=== PATIENT | female | born 1945 | race Caucasian/White ===

== ENCOUNTER 2024-06-25 08:45 | Outpatient (RCR) | payer MEDICARE, SELFPAY ==
[2024-06-11 08:02] VITALS: BP 117/69; PULSE 63; RESP 18; TEMP 36.5; BMI 33.1
--- NOTE | 2024-06-11 11:44 | HP.PCM_ITS ---
History of Present Illness Date of Service: 06/11/24 Chief Complaint: Left leg ulceration History of Wound: Nonhealing left leg ulceration 1 month Progress of Wound: Mrs. Rasmussen is a 79-year-old nondiabetic female presenting wound care center today for follow-up evaluation of full-thickness wound to the left leg. Patient states that her wound was caused by trauma when she was moving her piyush's at her [place] home to drive up from [place] to [place] to attend the fair. Patient states that she was seen initially for a hematoma that erupted on the left leg and is now left with a full-thickness wound. She has taken antibiotics but still has a chronic ulceration. No real treatment thus far. She denies constitutional symptoms. No other pedal plaints at this time. [facility] Home Medications ?Medication ?Instructions ?Recorded ?Last Taken ?Type alirocumab 75 mg/mL subcutaneous 75 mg subcut Q14D Cholesterol 06/11/24 Unknown History pen injector (Praluent Pen) alprazolam 0.5 mg tablet 0.25 mg PO PRN anxiety 06/11/24 Unknown History conjugated estrogens 0.625 mg/gram 0.625 mg vaginal DAILY Menopause 06/11/24 Unknown History vaginal cream (Premarin) hydrochlorothiazide 25 mg tablet 25 mg PO DAILY 06/11/24 Unknown History levothyroxine 125 mcg tablet 125 mcg PO DAILY 06/11/24 Unknown History omeprazole 20 mg capsule,delayed 20 mg PO BID 06/11/24 Unknown History release sertraline 100 mg tablet 100 mg PO DAILY 06/11/24 Unknown History spironolactone 25 mg tablet 25 mg PO DAILY 06/11/24 Unknown History Vital Signs Vital Signs Vital Signs: 06/11/24 08:02 Temperature 97.7 F L Temperature Source Temporal Pulse Rate 63 Respiratory Rate 18 Blood Pressure 117/69 Blood Pressure Mean 85 Blood Pressure Source Monitor Blood Pressure Position Sitting Blood Pressure Location Left Arm Oxygen Delivery Method Room Air Weight Weight: 87.543 kg Body Mass Index (BMI) 33.1 Physical Exam Narrative Vascular: DP and PT pulses to left lower extremity. Nonpitting edema appreciated to left lower extremity. Skin temperature gradient is warm to warm from proximal ankle to distal digits. No focal increase appreciated left lower extremity. Neurological: Light touch intact. Patient responds to painful stimuli. Dermatological: Full-thickness ulceration to anterior aspect of the left leg measuring 3.5 x 4.5 x 0.3 cm. Wound base is granular nature. Evidence of 0.5 cm undermining on all sides. Negative probe to bone. No drainage. No malodor. Light periwound erythema. Excisional debridement down to and including subcutaneous tissue, fascia and muscle to the left anterior leg without incident. Predebridement measurement was 3.0 x 4.0 x 0.1 cm. Postdebridement measurement is 3.5 x 4.5 x 0.3 cm. Musculoskeletal: Strength is 5 out of 5 in all quadrants. Mild pain on palpation to full-thickness ulceration to left leg. No pain at the calf pressure. Debridement Note Debridement Note Debridement Free Text: Excisional debridement down to and including subcutaneous tissue, fascia and muscle to the left anterior leg without incident. Predebridement measurement was 3.0 x 4.0 x 0.1 cm. Postdebridement measurement is 3.5 x 4.5 x 0.3 cm. Post-Debridement Measurements and Additional Note: Post-Debridement Measurements/Treatment - Nurse 1 - General Ulcer Assessment Start: 06/11/24 08:02 Freq: Status: Active Protocol: .NENITA Activity Type Activity Date Activity User E-sign Co-sign Detail Recorded Client Recorded Date Recorded By Document 06/11/24 08:02 [facility] 06/11/24 08:25 06/11/24 08:02 - Today's Visit Information Type of service Initial Visit Arrival Mode Ambulatory Transfer Assistance None Patient Identification Verified (Name & Yes ) Patient Requires Transmission-Based No Precautions Height and Weight Height 5 ft 4 in Weight 87.543 kg Weight in Pounds 193.0 lbs Weight Measurement Method Stated by Patient Body Mass Index (BMI) 33.1 BMI Classification Obese BSA - Jadiel 1.93 Vital Signs Temperature (97.8 F-99.1 F) 97.7 F L Temperature Source Temporal Pulse Rate (60-100) 63 Pulse Location Monitor Respiratory Rate (12-18) 18 Respiratory rate source Observation Oxygen Delivery Method Room Air Blood Pressure (90/60-120/80) 117/69 Blood Pressure Mean 85 Source Monitor Position Sitting Blood Pressure Location Left Arm History Since Last Visit- (Skip if this is Patient's initial visit) Has compression in place as prescribed N/A Has offloadiing in place as prescribed N/A Left Footwear Regular Shoe Right Footwear Regular Shoe Pain Scale: 0-10 Numeric Is Patient Pain Free? Yes Lower Extremity Assessment/ Foot Assessment/ Toe Nail Assessment Left -Claudication Assessment None -Posterior Tibial Palpable Yes -Dorsalis Pedis Palpable Yes -Dorsalis Pedis Doppler Monophasic -Hair Growth on Legs No -Hair Growth on Toes No -Temperature of Extremity Warm -Capillary Refill Less than 3 Seconds -Dependent Rubor No -Blanched when Elevated No -Other Deformity No -Prior Foot Ulcer No -Charcot Joint No -Prior Amputation No -Thick No -Discolored No -Deformed No -Improper Length & Hygeine No Communication Assessment Preferred language [place] Associate Relations Specialist Required No Able to Read Yes Able to Write Yes Communication Tools None Caregiver Communication Skills No Impairment Impairment Right Hearing Abillity Use of Hearing Aid Left Hearing Abillity Use of Hearing Aid Visual Assistive Devices None - Nurse 1 - General Ulcer Measurement Start: 06/11/24 08:02 Freq: Status: Active Protocol: Activity Type Activity Date Activity User E-sign Co-sign Detail Recorded Client Recorded Date Recorded By Document 06/11/24 08:02 [facility] 06/11/24 08:25 06/11/24 08:02 Wound Center Nurse 1 LLE -Combined with other wound No -Current Size (cm) - Length 2.2 -Current Size (cm) - Width 2.9 -Current Size (cm) - Depth 0.4 -Total Square Cm 6.38 -Date of Last Picture (Recall this 06/11/24 field) -Photo Taken Yes -Epithelialization Small 1-33% -Tunneling No -Undermining/Tunneling No -Circular Undermining Yes -Exudate Amt Medium -Exudate Type Serosanguineous -Wound Margin Distinct, Outline Attached -Granulation Amt Medium (34-66%) -Slough/Fibrin Yes -Necrosis Amt Small (1-33%) -Necrotic Tissue Type Adherent Slough -Texture (Bibiana-wound Skin Appearance) Assessed, Scarring -Moisture (Bibiana-wound Skin Appearance) Assessed -Color (Bibiana-wound Skin Appearance) Assessed, Erythema -Temperature (Bibiana-wound Skin No Abnormality Appearance) (Pt Warm) -Tenderness on Palpation (Bibiana-wound Yes Skin Appearance) -Ulcer Cleansing Rinsed/ Irrigated with Saline -Foul Odor after Cleansing No -Anesthetic Used 5% Lidocaine Gel Left Calf (cm) 43 Left Ankle (cm) 31 WC - Nurse 2 - General Ulcer CM Notes Start: 06/11/24 08:02 Freq: Status: Active Protocol: Activity Type Activity Date Activity User E-sign Co-sign Detail Recorded Client Recorded Date Recorded By Document 06/11/24 08:39 JF 000 06/11/24 08:43 JF 06/11/24 08:39 Wound Center Nurse 2 LLE -Time 08:41 -Correct Patient Yes -Correct Side, Site, Position Yes -Correct Procedure Yes -Procedure Performed Yes -Type of Procedure Debridement -Clinical Debridement Muscle / Fascia -Tissue Removed Muscle,Fascia -Post Debridement (cm) - Length 3.5 -Post Debridement (cm) - Width 4.5 -Post Debridement (cm) - Depth 0.3 -Total Square (Post) (cm) 15.75 -Area of Debridement (cm) - Length 3.5 -Area of Debridement (cm) - Width 4.5 -Total Square (Area) (cm) 15.75 -Tunneling No -Undermining/Tunneling No -Circular Undermining No -Wound/Ulcer Outcome Not Healed -Ulcer Cleansing Rinsed/ Irrigated with Saline -Foul Odor after Cleansing No -Bioengineered Tissue No -Bleeding Controlled with Pressure -Treatment Response Procedure Tolerated Well -Offloading No -Debridement - Muscle / Fascia, 1st Yes 20sq cm Pain Scale: 0-10 Numeric Is Patient Pain Free? Yes Assessment/Plan Assessment/Plan (1) Non-pressure chronic ulcer of other part of left lower leg with necrosis of muscle: CODE(S): L97.823 - Non-pressure chronic ulcer of other part of left lower leg with necrosis of muscle PLAN: Patient was examined and evaluated. All findings were discussed with the patient. All questions were answered to the patient's satisfaction. Excisional debridement down to and including subcutaneous tissue, fascia and muscle to the left anterior leg without incident. Predebridement measurement was 3.0 x 4.0 x 0.1 cm. Postdebridement measurement is 3.5 x 4.5 x 0.3 cm. Left lower extremities were cleaned and patted dry. Silver alginate was applied over the wound. Followed by dry sterile dressing and AA or Tubigrip. Will begin authorization for vascular studies so that the patient can be better compressed. Culture was taken and awaiting culture and sensitivity to return before new antibiotics are prescribed to the patient. After conversation with the patient during her initial visit today, the patient will returning to [place] in about 3 weeks. We will do our best to get the patient continuity of care when she returns to [place]. Follow-up at the wound care center with Dr. Waggoner in 1 week. (2) Other specified peripheral vascular diseases: CODE(S): I73.89 - Other specified peripheral vascular diseases (3) Pain in left leg: CODE(S): M79.605 - Pain in left leg
[2024-06-16 13:29] VITALS: BP 137/59; PULSE 66; RESP 16; TEMP 36.2; BMI 33.1
[2024-06-18 08:57] VITALS: BP 139/61; PULSE 69; RESP 16; TEMP 36.6; BMI 33.1
--- NOTE | 2024-06-18 09:11 | PN.PCM_ITS ---
History of Present Illness Date of Service: 06/18/24 Chief Complaint: Left leg ulceration History of Wound: Nonhealing left leg ulceration 1 month Progress of Wound: Mrs. Rasmussen is a 79-year-old nondiabetic female presenting wound care center today for follow-up evaluation of full-thickness wound to the left leg. Patient states that her wound was caused by trauma when she was moving her piyush's at her [place] home to drive up from [place] to [place] to attend the fair. Patient states that she was seen initially for a hematoma that erupted on the left leg and is now left with a full-thickness wound. She has taken antibiotics but still has a chronic ulceration. No real treatment thus far. She denies constitutional symptoms. No other pedal plaints at this time. Subjective Subjective Mrs. Rasmussen is a 79-year-old female presenting to wound care center today for follow-up evaluation of full-thickness leg secondary to injury to the left lower extremity. Patient is presenting today to review her antibiotic culture and sensitivity swab. Patient has been compliant with dressing changes. She admits to improvement but some redness to the left leg. She denies any new onset of trauma. Denies constitutional symptoms. No other pedal complaints at this time. Objective Data Objective Data Vital Signs: Vital Signs Temp Pulse Resp BP O2 Del Method 97.9 F 69 16 139/61 H Room Air 06/18/24 08:57 06/18/24 08:57 06/18/24 08:57 06/18/24 08:57 06/18/24 08:57 Oxygen Delivery Method Room Air Weight: 87.543 kg Body Mass Index (BMI) 33.1 Lab / Micro Data Micro: Microbiology 06/11/24 08:45 Ulcer, Decubitus - Leg, Left Gram Stain - Final 06/11/24 08:45 Ulcer, Decubitus - Leg, Left Wound Culture - Final Pseudomonas aeruginosa 06/11/24 08:45 Ulcer, Decubitus - Leg, Left Anaerobic Culture - Final No anaerobic bacteria isolated. Physical Exam Narrative Vascular: DP and PT pulses to left lower extremity. Nonpitting edema appreciated to left lower extremity. Skin temperature gradient is warm to warm from proximal ankle to distal digits. No focal increase appreciated left lower extremity. Neurological: Light touch intact. Patient responds to painful stimuli. Dermatological: Full-thickness ulceration to anterior aspect of the left leg measuring 2.3 x 2.8 x 0.3 cm. Wound base is granular nature. Evidence of undermining at the 6 and 9:00 positions to the left lower extremity. Negative probe to bone. No drainage. No malodor. Light periwound erythema. Excisional debridement down to and including subcutaneous tissue, fascia and muscle to the left anterior leg without incident. Predebridement measurement was 2.3 x 2.5 x 0.1 cm. Postdebridement measurement is 2.3 x 2.8 x 0.3 cm. Musculoskeletal: Strength is 5 out of 5 in all quadrants. Mild pain on palpation to full-thickness ulceration to left leg. No pain at the calf pressure. Debridement Note Debridement Note Debridement Free Text: Excisional debridement down to and including subcutaneous tissue, fascia and muscle to the left anterior leg without incident. Predebridement measurement was 2.3 x 2.5 x 0.1 cm. Postdebridement measurement is 2.3 x 2.8 x 0.3 cm. Post-Debridement Measurements and Additional Note: Post-Debridement Measurements/Treatment - Nurse 1 - General Ulcer Assessment Start: 06/11/24 08:02 Freq: Status: Active Protocol: .LOWEXT Activity Type Activity Date Activity User E-sign Co-sign Detail Recorded Client Recorded Date Recorded By Document 06/11/24 08:02 [facility] 06/11/24 08:25 Document 06/16/24 13:29 BMF 10.10.25.7 06/16/24 13:31 BMF Edit Result 06/16/24 13:29 BMF (1) 10.10.25.7 06/16/24 13:43 BMF Document 06/18/24 08:57 CP 06/18/24 09:00 CP (1) Type of service => Nurse-only Visit 06/11/24 06/16/24 06/18/24 08:02 13:29 08:57 - Today's Visit Information Type of service Initial Visit Nurse-only Follow-up Visit Visit (Physician/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 ) Arrival Mode Ambulatory Ambulatory Ambulatory Transfer Assistance None None None Patient Identification Verified (Name & Yes Yes Yes ) Patient Requires Transmission-Based No No No Precautions Height and Weight Height 5 ft 4 in Weight 87.543 kg Weight in Pounds 193.0 lbs Weight Measurement Method Stated by Patient Body Mass Index (BMI) 33.1 33.1 33.1 BMI Classification Obese Obese Obese BSA - Jadiel 1.93 Vital Signs Temperature (97.8 F-99.1 F) 97.7 F L 97.1 F L 97.9 F Temperature Source Temporal Temporal Temporal Pulse Rate (60-100) 63 66 69 Pulse Location Monitor Monitor Monitor Respiratory Rate (12-18) 18 16 16 Respiratory rate source Observation Observation Observation Oxygen Delivery Method Room Air Room Air Room Air Blood Pressure (90/60-120/80) 117/69 137/59 H 139/61 H Blood Pressure Mean (mm Hg) 85 85 87 Source Monitor Monitor Monitor Position Sitting Sitting Sitting Blood Pressure Location Left Arm Left Arm Left Arm History Since Last Visit- (Skip if this is Patient's initial visit) Have you changed medications since your No Yes last visit? Any new allergies or adverse reactions No No Had a fall/change in ADL's that may No No increase risk of falls Signs or symptoms of abuse and/or No No neglect since last visit Have you been in the hospital since your No No last visit? Has dressing in place as prescribed Yes Yes Has compression in place as prescribed N/A No Yes Has offloadiing in place as prescribed N/A N/A N/A Experienced any changes in pain level or No No management Left Footwear Regular Shoe Regular Shoe Regular Shoe Right Footwear Regular Shoe Regular Shoe Regular Shoe Other Footwear pt cut the bottom/dorsal area of 3m off Pain Scale: 0-10 Numeric Is Patient Pain Free? Yes Yes Yes Lower Extremity Assessment/ Foot Assessment/ Toe Nail Assessment Left -Claudication Assessment None -Posterior Tibial Palpable Yes -Dorsalis Pedis Palpable Yes -Dorsalis Pedis Doppler Monophasic -Hair Growth on Legs No -Hair Growth on Toes No -Temperature of Extremity Warm -Capillary Refill Less than 3 Seconds -Dependent Rubor No -Blanched when Elevated No -Other Deformity No -Prior Foot Ulcer No -Charcot Joint No -Prior Amputation No -Thick No -Discolored No -Deformed No -Improper Length & Hygeine No Communication Assessment Preferred language [place] [employer] Physical Therapist Required No Able to Read Yes Able to Write Yes Communication Tools None Caregiver Communication Skills No Impairment Impairment Right Hearing Abillity Use of Hearing Aid Left Hearing Abillity Use of Hearing Aid Visual Assistive Devices None WC - Nurse 1 - General Ulcer Measurement Start: 06/11/24 08:02 Freq: Status: Active Protocol: Activity Type Activity Date Activity User E-sign Co-sign Detail Recorded Client Recorded Date Recorded By Document 06/11/24 08:02 GM wc 06/11/24 08:25 GM Document 06/16/24 13:29 BMF 10.10.25.7 06/16/24 13:31 BMF Document 06/18/24 08:57 CP 06/18/24 09:00 CP 06/11/24 06/16/24 06/18/24 08:02 13:29 08:57 Wound Center Nurse 1 LLE -Combined with other wound No No -Current Size (cm) - Length 2.2 2.6 2.4 -Current Size (cm) - Width 2.9 2.8 2.7 -Current Size (cm) - Depth 0.4 0.2 0.2 -Total Square Cm 6.38 7.28 6.48 -Date of Last Picture (Recall this 06/11/24 06/16/24 field) -Photo Taken Yes Yes No -Epithelialization Small 1-33% Small 1-33% None Present -Tunneling No No No -Undermining/Tunneling No No No -Circular Undermining Yes No -Exudate Amt Medium Medium Small -Exudate Type Serosanguineous Serosanguineous Serosanguineous -Wound Margin Distinct, Distinct, Flat & Intact Outline Outline Attached Attached -Granulation Amt Medium (34-66%) Medium (34-66%) Medium (34-66%) -Granulation Quality Red [place] -Slough/Fibrin Yes Yes Yes -Necrosis Amt Small (1-33%) Medium (34-66%) Medium (34-66%) -Necrotic Tissue Type Adherent Slough Adherent Slough Adherent Slough -Structure Exposed N/A -Texture (Bibiana-wound Skin Appearance) Assessed, Assessed, No Abnormality Scarring Scarring -Moisture (Bibiana-wound Skin Appearance) Assessed Assessed No Abnormality -Color (Bibiaan-wound Skin Appearance) Assessed, Assessed No Abnormality Erythema -Temperature (Bibiana-wound Skin No Abnormality No Abnormality No Abnormality Appearance) (Pt Warm) (Pt Warm) (Pt Warm) -Tenderness on Palpation (Bibiana-wound Yes No Skin Appearance) -Ulcer Cleansing Rinsed/ Rinsed/ Soap and Water Irrigated with Irrigated with Saline Saline -Foul Odor after Cleansing No No -Anesthetic Used 5% Lidocaine 4% Lidocaine Gel Solution Lower Limb Edema Present Yes Left Calf (cm) 43 41 39 Left Ankle (cm) 31 30.5 29 KIKE - Nurse 2 - General Ulcer CM Notes Start: 06/11/24 08:02 Freq: Status: Active Protocol: Activity Type Activity Date Activity User E-sign Co-sign Detail Recorded Client Recorded Date Recorded By Document 06/11/24 08:39 JF 000 06/11/24 08:43 JF Document 06/18/24 09:05 JF 0000 06/18/24 09:09 JF 06/11/24 06/18/24 08:39 09:05 Wound Center Nurse 2 LLE -Time 08:41 09:07 -Correct Patient Yes Yes -Correct Side, Site, Position Yes Yes -Correct Procedure Yes Yes -Procedure Performed Yes Yes -Type of Procedure Debridement Debridement -Clinical Debridement Muscle / Fascia Subcutaneous -Tissue Removed Muscle,Fascia Subcutaneous -Post Debridement (cm) - Length 3.5 2.3 -Post Debridement (cm) - Width 4.5 2.8 -Post Debridement (cm) - Depth 0.3 0.3 -Total Square (Post) (cm) 15.75 6.44 -Area of Debridement (cm) - Length 3.5 2.3 -Area of Debridement (cm) - Width 4.5 2.8 -Total Square (Area) (cm) 15.75 6.44 -Tunneling No No -Undermining/Tunneling No Yes -Undermining/Tunneling Starts (O'clock 6 ) -Undermining/Tunneling Ends (O'clock) 9 -Maximum Distance (cm) 1.0 -Circular Undermining No No -Wound/Ulcer Outcome Not Healed Not Healed -Ulcer Cleansing Rinsed/ Rinsed/ Irrigated with Irrigated with Saline Saline -Foul Odor after Cleansing No No -Bioengineered Tissue No No -Bleeding Controlled with Pressure Pressure -Treatment Response Procedure Procedure Tolerated Well Tolerated Well -Offloading No No -Debridement - Subq, 1st 20sq cm Yes -Debridement - Muscle / Fascia, 1st Yes 20sq cm Pain Scale: 0-10 Numeric Is Patient Pain Free? Yes Yes KIKE - Nurse 3 - General Ulcer D/C NN Start: 06/11/24 08:02 Freq: Status: Active Protocol: Activity Type Activity Date Activity User E-sign Co-sign Detail Recorded Client Recorded Date Recorded By Document 06/16/24 13:42 [facility] 10.10.25.7 06/16/24 13:42 [facility] 06/16/24 13:42 Wound Care Center Nurse 3 LLE -Ulcer Cleansing Rinsed/ Irrigated with Saline -Foul Odor after Cleansing No -Primary Dressing Applied Aquacel Extra, Optilok 6.5x10 -Other Dressing drsg per jf rn -Aquacel Extra 1 -Optilok 6.5x10 1 Left -Multi-Layered Wrap Application Multi-Layer Comp - Left ($) Treatment Response Procedure Tolerated Well Pain Scale: 0-10 Numeric Is Patient Pain Free? Yes WC - Visit Discharge Discharge Condition Stable Ambulatory Status Ambulatory Transportation Private Auto Assessment/Plan Assessment/Plan (1) Non-pressure chronic ulcer of other part of left lower leg with necrosis of muscle: CODE(S): L97.823 - Non-pressure chronic ulcer of other part of left lower leg with necrosis of muscle PLAN: Patient was examined and evaluated. All findings were discussed with the patient. All questions were answered to the patient's satisfaction. Excisional debridement down to and including subcutaneous tissue, fascia and muscle to the left anterior leg without incident. Predebridement measurement was 2.3 x 2.5 x 0.1 cm. Postdebridement measurement is 2.3 x 2.8 x 0.3 cm. Left lower extremities were cleaned and patted dry. The ulceration was dressed with Aquacel extra, dry sterile dressing and compression wrap was donned to left lower extremity. Review of the patient's antibiotics show evidence of Pseudomonas aeruginosa and she will be placed on ciprofloxacin 750 mg twice daily for 2 weeks. Patient will be leaving after next week back to [place] we will find her a new wound care center in her area to follow-up for continued treatment and continuity of care. Follow-up at the wound care center with Dr. Waggoner in 1 week. (2) Other specified peripheral vascular diseases: CODE(S): I73.89 - Other specified peripheral vascular diseases (3) Cellulitis of left leg: CODE(S): L03.116 - Cellulitis of left lower limb
[2024-06-25 09:19] VITALS: BP 136/72; PULSE 69; RESP 16; TEMP 36.6; BMI 33.1
--- NOTE | 2024-06-25 10:44 | PN.PCM_ITS ---
History of Present Illness Date of Service: 06/25/24 Chief Complaint: Left leg ulceration History of Wound: Nonhealing left leg ulceration 1 month Progress of Wound: Mrs. Rasmussen is a 79-year-old nondiabetic female presenting wound care center today for follow-up evaluation of full-thickness wound to the left leg. Patient states that her wound was caused by trauma when she was moving her piyush's at her [place] home to drive up from [place] to [place] to attend the fair. Patient states that she was seen initially for a hematoma that erupted on the left leg and is now left with a full-thickness wound. She has taken antibiotics but still has a chronic ulceration. No real treatment thus far. She denies constitutional symptoms. No other pedal plaints at this time. Subjective Subjective Ms. Rasmussen is a 79-year-old female presenting to the wound care center today for follow-up evaluation of left leg ulceration. Patient has completed her time here at [facility] and will be traveling back to [place] arriving 06/28/2024. She has completed her antibiotic. She has been doing dressing changes as instructed. She admits to improvement to her leg ulcer. Denies any new onset of trauma. Denies constitutional symptoms. No other pedal complaints at this time. Objective Data Objective Data Vital Signs: Vital Signs Temp Pulse Resp BP O2 Del Method 98 F 69 16 136/72 H Room Air 06/25/24 09:19 06/25/24 09:19 06/25/24 09:19 06/25/24 09:19 06/25/24 09:19 Oxygen Delivery Method Room Air Weight: 87.543 kg Body Mass Index (BMI) 33.1 Lab / Micro Data Micro: Microbiology 06/11/24 08:45 Ulcer, Decubitus - Leg, Left Gram Stain - Final 06/11/24 08:45 Ulcer, Decubitus - Leg, Left Wound Culture - Final Pseudomonas aeruginosa 06/11/24 08:45 Ulcer, Decubitus - Leg, Left Anaerobic Culture - Final No anaerobic bacteria isolated. Physical Exam Narrative Vascular: DP and PT pulses to left lower extremity. Nonpitting edema appreciated to left lower extremity. Skin temperature gradient is warm to warm from proximal ankle to distal digits. No focal increase appreciated left lower extremity. Neurological: Light touch intact. Patient responds to painful stimuli. Dermatological: Full-thickness ulceration to anterior aspect of the left leg measuring 1.8 x 2.7 x 0.2 cm. Wound base is granular nature. Evidence of undermining at the 6 o'clock positions to the left lower extremity. Negative probe to bone. No drainage. No malodor. Light periwound erythema. Excisional debridement down to and including subcutaneous tissue, fascia and muscle to the left anterior leg without incident. Predebridement measurement was 1.6 x 2.6 x 0.1 cm. Postdebridement measurement is 1.8 x 2.7 x 0.2 cm. Musculoskeletal: Strength is 5 out of 5 in all quadrants. Mild pain on palpation to full-thickness ulceration to left leg. No pain at the calf pressure. Debridement Note Debridement Note Debridement Free Text: Excisional debridement down to and including subcutaneous tissue, fascia and muscle to the left anterior leg without incident. Predebridement measurement was 1.6 x 2.6 x 0.1 cm. Postdebridement measurement is 1.8 x 2.7 x 0.2 cm. Post-Debridement Measurements and Additional Note: Post-Debridement Measurements/Treatment - Nurse 1 - General Ulcer Assessment Start: 06/11/24 08:02 Freq: Status: Active Protocol: [email or web address] Activity Type Activity Date Activity User E-sign Co-sign Detail Recorded Client Recorded Date Recorded By Document 06/11/24 08:02 [facility] 06/11/24 08:25 Document 06/16/24 13:29 BMF 10.10.25.7 06/16/24 13:31 BMF Edit Result 06/16/24 13:29 BMF (1) 10.10.25.7 06/16/24 13:43 BMF Document 06/18/24 08:57 CP 06/18/24 09:00 CP Document 06/25/24 09:19 CP [id number] 06/25/24 09:20 CP (1) Type of service => Nurse-only Visit 06/11/24 06/16/24 06/18/24 08:02 13:29 08:57 - Today's Visit Information Type of service Initial Visit Nurse-only Follow-up Visit Visit (Physician/[employer]PER[employer] ) Arrival Mode Ambulatory Ambulatory Ambulatory Transfer Assistance None None None Patient Identification Verified (Name & Yes Yes Yes ) Patient Requires Transmission-Based No No No Precautions Height and Weight Height 5 ft 4 in Weight 87.543 kg Weight in Pounds 193.0 lbs Weight Measurement Method Stated by Patient Body Mass Index (BMI) 33.1 33.1 33.1 BMI Classification Obese Obese Obese BSA - Jadiel 1.93 Vital Signs Temperature (97.8 F-99.1 F) 97.7 F L 97.1 F L 97.9 F Temperature Source Temporal Temporal Temporal Pulse Rate (60-100) 63 66 69 Pulse Location Monitor Monitor Monitor Respiratory Rate (12-18) 18 16 16 Respiratory rate source Observation Observation Observation Oxygen Delivery Method Room Air Room Air Room Air Blood Pressure (90/60-120/80) 117/69 137/59 H 139/61 H Blood Pressure Mean (mm Hg) 85 85 87 Source Monitor Monitor Monitor Position Sitting Sitting Sitting Blood Pressure Location Left Arm Left Arm Left Arm History Since Last Visit- (Skip if this is Patient's initial visit) Have you changed medications since your No Yes last visit? Any new allergies or adverse reactions No No Had a fall/change in ADL's that may No No increase risk of falls Signs or symptoms of abuse and/or No No neglect since last visit Have you been in the hospital since your No No last visit? Has dressing in place as prescribed Yes Yes Has compression in place as prescribed N/A No Yes Has offloadiing in place as prescribed N/A N/A N/A Experienced any changes in pain level or No No management Left Footwear Regular Shoe Regular Shoe Regular Shoe Right Footwear Regular Shoe Regular Shoe Regular Shoe Other Footwear pt cut the bottom/dorsal area of 3m off Pain Scale: 0-10 Numeric Is Patient Pain Free? Yes Yes Yes Lower Extremity Assessment/ Foot Assessment/ Toe Nail Assessment Left -Claudication Assessment None -Posterior Tibial Palpable Yes -Dorsalis Pedis Palpable Yes -Dorsalis Pedis Doppler Monophasic -Hair Growth on Legs No -Hair Growth on Toes No -Temperature of Extremity Warm -Capillary Refill Less than 3 Seconds -Dependent Rubor No -Blanched when Elevated No -Other Deformity No -Prior Foot Ulcer No -Charcot Joint No -Prior Amputation No -Thick No -Discolored No -Deformed No -Improper Length & Hygeine No Communication Assessment Preferred language Greek Operations Label Clerk Required No Able to Read Yes Able to Write Yes Communication Tools None Caregiver Communication Skills No Impairment Impairment Right Hearing Abillity Use of Hearing Aid Left Hearing Abillity Use of Hearing Aid Visual Assistive Devices None 06/25/24 09:19 WC - Today's Visit Information Type of service Follow-up Visit (Physician/[employer]PERVIS[employer] ) Arrival Mode Ambulatory Transfer Assistance Patient Identification Verified (Name & Yes ) Patient Requires Transmission-Based No Precautions Height and Weight Height Weight Weight in Pounds Weight Measurement Method Body Mass Index (BMI) 33.1 BMI Classification Obese BSA - Jadiel Vital Signs Temperature (97.8 F-99.1 F) 98 F Temperature Source Temporal Pulse Rate (60-100) 69 Pulse Location Monitor Respiratory Rate (12-18) 16 Respiratory rate source Observation Oxygen Delivery Method Room Air Blood Pressure (90/60-120/80) 136/72 H Blood Pressure Mean (mm Hg) 93 Source Monitor Position Semi-Fowlers Blood Pressure Location Right Arm History Since Last Visit- (Skip if this is Patient's initial visit) Have you changed medications since your No last visit? Any new allergies or adverse reactions No Had a fall/change in ADL's that may No increase risk of falls Signs or symptoms of abuse and/or No neglect since last visit Have you been in the hospital since your No last visit? Has dressing in place as prescribed Yes Has compression in place as prescribed Yes Has offloadiing in place as prescribed N/A Experienced any changes in pain level or No management Left Footwear Right Footwear Other Footwear Pain Scale: 0-10 Numeric Is Patient Pain Free? Yes Lower Extremity Assessment/ Foot Assessment/ Toe Nail Assessment Left -Claudication Assessment -Posterior Tibial Palpable -Dorsalis Pedis Palpable -Dorsalis Pedis Doppler -Hair Growth on Legs -Hair Growth on Toes -Temperature of Extremity -Capillary Refill -Dependent Rubor -Blanched when Elevated -Other Deformity -Prior Foot Ulcer -Charcot Joint -Prior Amputation -Thick -Discolored -Deformed -Improper Length & Hygeine Communication Assessment Preferred speech and language tutor Required Able to Read Able to Write Communication Tools Caregiver Communication Skills Impairment Right Hearing Abillity Left Hearing Abillity Visual Assistive Devices - Nurse 1 - General Ulcer Measurement Start: 06/11/24 08:02 Freq: Status: Active Protocol: Activity Type Activity Date Activity User E-sign Co-sign Detail Recorded Client Recorded Date Recorded By Document 06/11/24 08:02 GM 06/11/24 08:25 GM Document 06/16/24 13:29 [facility] 10.10.25.7 06/16/24 13:31 BMF Document 06/18/24 08:57 CP 06/18/24 09:00 CP Document 06/25/24 09:19 CP [id number] 06/25/24 09:20 CP 06/11/24 06/16/24 06/18/24 08:02 13:29 08:57 Wound Center Nurse 1 LLE -Combined with other wound No No -Current Size (cm) - Length 2.2 2.6 2.4 -Current Size (cm) - Width 2.9 2.8 2.7 -Current Size (cm) - Depth 0.4 0.2 0.2 -Total Square Cm 6.38 7.28 6.48 -Date of Last Picture (Recall this 06/11/24 06/16/24 field) -Photo Taken Yes Yes No -Epithelialization Small 1-33% Small 1-33% None Present -Tunneling No No No -Undermining/Tunneling No No No -Circular Undermining Yes No -Exudate Amt Medium Medium Small -Exudate Type Serosanguineous Serosanguineous Serosanguineous -Wound Margin Distinct, Distinct, Flat & Intact Outline Outline Attached Attached -Granulation Amt Medium (34-66%) Medium (34-66%) Medium (34-66%) -Granulation Quality [place] -Slough/Fibrin Yes Yes Yes -Necrosis Amt Small (1-33%) Medium (34-66%) Medium (34-66%) -Necrotic Tissue Type Adherent Slough Adherent Slough Adherent Slough -Structure Exposed N/A -Texture ([place]-wound Skin Appearance) Assessed, Assessed, No Abnormality Scarring Scarring -Moisture ([place]-wound Skin Appearance) Assessed Assessed No Abnormality -Color ([place]-wound Skin Appearance) Assessed, Assessed No Abnormality Erythema -Temperature ([place]-wound Skin No Abnormality No Abnormality No Abnormality Appearance) (Pt Warm) (Pt Warm) (Pt Warm) -Tenderness on Palpation ([place]-wound Yes No Skin Appearance) -Ulcer Cleansing Rinsed/ Rinsed/ Soap and Water Irrigated with Irrigated with Saline Saline -Foul Odor after Cleansing No No -Anesthetic Used 5% Lidocaine 4% Lidocaine Gel Solution Lower Limb Edema Present Yes Left Calf (cm) 43 41 39 Left Ankle (cm) 31 30.5 29 06/25/24 09:19 Wound Center Nurse 1 LLE -Combined with other wound -Current Size (cm) - Length 2 -Current Size (cm) - Width 2.5 -Current Size (cm) - Depth 0.2 -Total Square Cm 5.0 -Date of Last Picture (Recall this 06/25/24 field) -Photo Taken Yes -Epithelialization -Tunneling -Undermining/Tunneling -Circular Undermining -Exudate Amt -Exudate Type -Wound Margin Flat & Intact -Granulation Amt Large (67-100%) -Granulation Quality Red -Slough/Fibrin -Necrosis Amt Small (1-33%) -Necrotic Tissue Type Adherent Slough -Structure Exposed N/A -Texture ([place]-wound Skin Appearance) No Abnormality -Moisture ([place]-wound Skin Appearance) No Abnormality -Color ([place]-wound Skin Appearance) No Abnormality -Temperature ([place]-wound Skin No Abnormality Appearance) (Pt Warm) -Tenderness on Palpation ([place]-wound No Skin Appearance) -Ulcer Cleansing Soap and Water -Foul Odor after Cleansing -Anesthetic Used 5% Lidocaine Gel Lower Limb Edema Present Left Calf (cm) 39 Left Ankle (cm) 29.5 WC - Nurse 2 - General Ulcer CM Notes Start: 06/11/24 08:02 Freq: Status: Active Protocol: Activity Type Activity Date Activity User E-sign Co-sign Detail Recorded Client Recorded Date Recorded By Document 06/11/24 08:39 JF 000 06/11/24 08:43 Document 06/18/24 09:05 JF 0000 06/18/24 09:09 Document 06/25/24 09:26 [id number] 06/25/24 09:32 JF 06/11/24 06/18/24 06/25/24 08:39 09:05 09:26 Wound Center Nurse 2 LLE -Time 08:41 09:07 09:27 -Correct Patient Yes Yes Yes -Correct Side, Site, Position Yes Yes Yes -Correct Procedure Yes Yes Yes -Procedure Performed Yes Yes Yes -Type of Procedure Debridement Debridement Debridement -Clinical Debridement Muscle / Fascia Subcutaneous Subcutaneous -Tissue Removed Muscle,Fascia Subcutaneous Subcutaneous -Post Debridement (cm) - Length 3.5 2.3 1.8 -Post Debridement (cm) - Width 4.5 2.8 2.7 -Post Debridement (cm) - Depth 0.3 0.3 0.2 -Total Square (Post) (cm) 15.75 6.44 4.86 -Area of Debridement (cm) - Length 3.5 2.3 1.8 -Area of Debridement (cm) - Width 4.5 2.8 2.7 -Total Square (Area) (cm) 15.75 6.44 4.86 -Tunneling No No No -Undermining/Tunneling No Yes No -Undermining/Tunneling Starts (O'clock 6 ) -Undermining/Tunneling Ends (O'clock) 9 -Maximum Distance (cm) 1.0 -Circular Undermining No No No -Wound/Ulcer Outcome Not Healed Not Healed Not Healed -Ulcer Cleansing Rinsed/ Rinsed/ Rinsed/ Irrigated with Irrigated with Irrigated with Saline Saline Saline -Foul Odor after Cleansing No No No -Bioengineered Tissue No No No -Bleeding Controlled with Pressure Pressure Pressure -Treatment Response Procedure Procedure Procedure Tolerated Well Tolerated Well Tolerated Well -Offloading No No No -Debridement - Subq, 1st 20sq cm Yes Yes -Debridement - Muscle / Fascia, 1st Yes 20sq cm Pain Scale: 0-10 Numeric Is Patient Pain Free? Yes Yes Yes WC - Nurse 3 - General Ulcer D/C NN Start: 06/11/24 08:02 Freq: Status: Active Protocol: Activity Type Activity Date Activity User E-sign Co-sign Detail Recorded Client Recorded Date Recorded By Document 06/16/24 13:42 [facility] 10.10.25.7 06/16/24 13:42 [facility] Document 06/25/24 09:56 CP [id number] 06/25/24 09:57 CP 06/16/24 06/25/24 13:42 09:56 Wound Care Center Nurse 3 LLE -Ulcer Cleansing Rinsed/ Rinsed/ Irrigated with Irrigated with Saline Saline -Foul Odor after Cleansing No No -Primary Dressing Applied Aquacel Extra, Aquacel Extra Optilok 6.5x10 -Other Dressing drsg per jf rn -Primary Dressing Covered/Secured with Dry Gauze & Roll Gauze, Secured with Tape -Aquacel Extra 1 1 -Optilok 6.5x10 1 Left -Multi-Layered Wrap Application Multi-Layer Comp - Left ($) -Tubular Bandage Double Layer -Size of Tubigrip Used Size E -Size E ($) 2 Treatment Response Procedure Procedure Tolerated Well Tolerated Well Pain Scale: 0-10 Numeric Is Patient Pain Free? Yes Yes WC - Visit Discharge Discharge Condition Stable Stable Ambulatory Status Ambulatory Ambulatory Transportation Private Auto Private Auto Clinical Summary of Care Provided Yes Assessment/Plan Assessment/Plan (1) Non-pressure chronic ulcer of other part of left lower leg with fat layer exposed: CODE(S): L97.822 - Non-pressure chronic ulcer of other part of left lower leg with fat layer exposed PLAN: Patient was examined and evaluated. All findings were discussed with the patient. All questions were answered to the patient's satisfaction. Excisional debridement down to and including subcutaneous tissue, fascia and muscle to the left anterior leg without incident. Predebridement measurement was 1.6 x 2.6 x 0.1 cm. Postdebridement measurement is 1.8 x 2.7 x 0.2 cm. Left lower extremities were cleaned and patted dry. The left lower extremity was dressed with Aquacel without silver, dry sterile dressing and a double layer Tubigrip to left lower extremity. Patient was given an order for dressing supplies to be purchased at the [facility] pharmacy for every other day dressing changes. The patient was given a referral and has an appointment with any new criminal intelligence specialist and will be returning to [place] on 06/24/2024. Patient is reach out to Dr. Waggoner for any questions concerns prior to arriving in [place]. Follow-up at the wound care center with Dr. Waggoner in 1 week. (2) Other specified peripheral vascular diseases: CODE(S): I73.89 - Other specified peripheral vascular diseases
--- NOTE | 2024-06-26 09:16 | WC ---
PHOTO 06/11/24 [facility]
--- NOTE | 2024-06-26 09:20 | WC ---
PHOTO 06/11/24 [facility]
--- NOTE | 2024-06-26 11:25 | WC ---
PHOTO 06/16/24 [facility]
--- NOTE | 2024-06-26 11:25 | WC ---
PHOTO 06/16/24 [facility]
--- NOTE | 2024-06-26 13:17 | WC ---
PHOTO LEFT LATERAL LEG 06/25/24
--- NOTE | 2024-06-26 13:33 | WC ---
PHOTO 06/25/24 LEFT LATERAL LOWER LEG
== END 2024-07-05 23:59 | disposition home or self-care (01) ==
LOC: WC 08:45
PROVIDERS: Visit Provider Podiatrist Foot & Ankle Surgery
DX: I73.89 Other specified peripheral vascular diseases (principal); L97.823 Non-pressure chronic ulcer of other part of left lower leg with necrosis of muscle; R60.0 Localized edema; M79.605 Pain in left leg
CPT/HCPCS: 11042; 11043; 29581; 87070; 87075; 87077; 87186; 87205; 99214; G0463